=== PATIENT | female | born 1980 | race African-American/Black ===

== ENCOUNTER 2016-09-08 12:45 | Emergency (ER) | payer OTHER, MEDICARE ==
[~2016-09-08] VITALS: Ht 160 cm; Wt 105.5 kg
[2016-09-08] MEDS ORDERED: HYDROmorphone 1 MG/ML, 1ML ONE (13:59)
[2016-09-08] MEDS ORDERED: ONDANSETRON ODT 4 MG ONE (14:00)
[2016-09-08] MEDS ORDERED: METHOCARBAMOL 750 MG TABLET ONE (14:00)
[2016-09-08] MEDS ORDERED: HYDROmorphone 1 MG/ML, 1ML IM ONE (14:00)
[2016-09-08] MEDS ORDERED: METHOCARBAMOL 750 MG TABLET PO ONE (14:00)
[2016-09-08] MEDS ORDERED: ONDANSETRON ODT 4 MG PO ONE (14:00)
[2016-09-08] MEDS ORDERED: SODIUM CHLORIDE FLUSH 10ML SYR IVF ONE (15:00)
[2016-09-08] MEDS ORDERED: SODIUM CHLORIDE 0.9% 1,000ML IVBOLUS ONE (15:00)
[2016-09-08 15:13] LABS: PATH.CAST-FLAG NOT PRESENT; SPERM-FLAG NOT PRESENT; SRC-FLAG NOT PRESENT; XTAL-FLAG NOT PRESENT; YLC-FLAG NOT PRESENT
[2016-09-08 15:15] LABS: BLOOD UREA NITROGEN 11 mg/dL (7-18)
[2016-09-08] MEDS ORDERED: LORazepam 2 MG/ML, 1ML IVPush PRN (15:30)
[2016-09-08] MEDS ORDERED: LORazepam 2 MG/ML, 1ML ONE (15:31)
[2016-09-08] MEDS ORDERED: GADOBUTROL 10 MMOL/10 ML PFS ONE (16:01)
[2016-09-08 17:02] VITALS: BP 118/75
== END 2016-09-08 18:05 | disposition home or self-care (01) ==
LOC: ED 15:00
DX: G89.29 Other chronic pain (principal); M54.5 Low back pain; M51.36 Other intervertebral disc degeneration, lumbar region
CPT/HCPCS: 36415; 72158; 80048; 81001; 82040; 84703; 85025; 87086; 96361; 96372; 96374; 99285; A9585; J1170; J2060; J7030; Q0162

== ENCOUNTER 2017-03-18 13:35 | Emergency (ER) | payer OTHER, MEDICARE ==
[~2017-03-18] VITALS: Ht 157.5 cm; Wt 111.1 kg
[2017-03-18] MEDS ORDERED: HYDROmorphone 1 MG/ML, 1ML IM ONE ×2 (15:30→17:00)
[2017-03-18] MEDS ORDERED: KETOROLAC 30 MG/1 ML IM ONE (15:30)
[2017-03-18] MEDS ORDERED: DIAZEPAM 5 MG TABLET PO ONE (15:30)
[2017-03-18] MEDS ORDERED: KETOROLAC 30 MG/1 ML ONE (15:45)
[2017-03-18] MEDS ORDERED: DIAZEPAM 5 MG TABLET ONE (15:45)
[2017-03-18] MEDS ORDERED: HYDROmorphone 2 MG/ML, 1ML ONE ×2 (15:45→16:39)
[2017-03-18] MEDS ORDERED: ONDANSETRON ODT 4 MG ONE ×2 (17:12→19:25)
[2017-03-18] MEDS ORDERED: ONDANSETRON ODT 4 MG PO ONE (17:30)
[2017-03-18 19:07] VITALS: BP 129/84
[2017-03-18] MEDS ORDERED: NALOXONE 0.4 MG/ML, 1ML IVPush ONE (19:30)
== END 2017-03-18 16:53 | disposition home or self-care (01) ==
LOC: ED 16:47
DX: M54.42 Lumbago with sciatica, left side (principal); G89.29 Other chronic pain
CPT/HCPCS: 72110; 96372; 99284; J1170; J1885; Q0162

== ENCOUNTER 2018-03-22 10:05 | Emergency (ER) | payer OTHER, MEDICARE ==
[~2018-03-22] VITALS: Ht 157.5 cm; Wt 103.0 kg
--- NOTE | 2018-03-22 10:34 | NUR ---
Pt presents for pain to bilateral hips x 2 days. Pt states hx of LBP. Throbbing pain. Tingling and numbnes to LLE. cramping to RLE. No incont. Pt able to ambulate.
[2018-03-22] MEDS ORDERED: IBUPROFEN 600 MG TABLET ONE (10:47)
[2018-03-22] MEDS ORDERED: ONDANSETRON ODT 4 MG ONE (10:47)
[2018-03-22] MEDS ORDERED: HYDROmorphone 2 MG/ML, 1ML ONE (10:47)
[2018-03-22] MEDS ORDERED: ONDANSETRON ODT 4 MG PO ONE (11:00)
[2018-03-22] MEDS ORDERED: HYDROmorphone 2 MG/ML, 1ML IM ONE (11:00)
[2018-03-22] MEDS ORDERED: IBUPROFEN 200 MG TABLET PO ONE (11:00)
[2018-03-22 11:47] VITALS: BP 105/56
== END 2018-03-22 11:51 | disposition home or self-care (01) ==
LOC: ED 11:41
DX: M54.16 Radiculopathy, lumbar region (principal); M25.551 Pain in right hip; M25.552 Pain in left hip; G89.29 Other chronic pain; Z87.891 Personal history of nicotine dependence
CPT/HCPCS: 96372; 99283; J1170; Q0162

== ENCOUNTER → 2018-05-10 | Outpatient (CLI) | payer OTHER, MEDICARE ==
[~2018-05-10] MED LIST: FENTANYL PF 100 MCG/2ML ONE; FLUMAZENIL 0.1 MG/1 ML, 5ML ONE; MIDAZOLAM 1 MG/ML, 5ML ONE; NALOXONE 1 MG/ML, 2ML ONE
== END | disposition home or self-care (01) ==
LOC: RAD 09:42
PROVIDERS: ATTEND Nurse Practitioner Gerontology
DX: M43.16 Spondylolisthesis, lumbar region (principal); M54.16 Radiculopathy, lumbar region; M48.061 Spinal stenosis, lumbar region without neurogenic claudication
CPT/HCPCS: 72148; 99156; 99157; J2250; J3010; J2310

== ENCOUNTER → 2018-05-26 | Outpatient (CLI) | payer OTHER, MEDICARE | END | disposition home or self-care (01) | LOC: RAD 09:29 | PROVIDERS: ATTEND Nurse Practitioner Gerontology | DX: S33.39XA Dislocation of other parts of lumbar spine and pelvis, initial encounter (principal); M47.817 Spondylosis without myelopathy or radiculopathy, lumbosacral region; M43.07 Spondylolysis, lumbosacral region; M48.07 Spinal stenosis, lumbosacral region; X58.XXXA Exposure to other specified factors, initial encounter; Y93.89 Activity, other specified; Y92.89 Other specified places as the place of occurrence of the external cause; Y99.8 Other external cause status | CPT/HCPCS: 72114 ==

== ENCOUNTER → 2018-08-11 | Outpatient (CLI) | payer OTHER, MEDICARE ==
[~2018-08-11] MED LIST changes: +CYAN100072 PO; -FENTANYL PF 100 MCG/2ML ONE; -FLUMAZENIL 0.1 MG/1 ML, 5ML ONE; +MEDR5TAB2 PO; -MIDAZOLAM 1 MG/ML, 5ML ONE; +MULT-308 PO; -NALOXONE 1 MG/ML, 2ML ONE
[2018-08-11 16:12] LABS: BASOPHILS # (AUTO) 0.05 x10^3/uL (0-0.1); BASOPHILS % (AUTO) 1 % (0-1); EOSINOPHILS # (AUTO) 0.19 x10^3/uL (0-0.4); EOSINOPHILS % (AUTO) 3 % (1-7); LYMPHOCYTES # (AUTO) 2.22 x10^3/uL (1-3.4); LYMPHOCYTES % (AUTO) 31 % (22-44); MD NO; MEAN CORPUSCULAR HEMOGLOBIN 33.5 pg (27.0-34.8); MEAN CORPUSCULAR HGB CONC 32.9 g/dL (32.4-35.8); MEAN CORPUSCULAR VOLUME 101.8 fL (80-100); MEAN PLATELET VOLUME 8.4 fL (7.4-10.4); MONOCYTES # (AUTO) 0.62 x10^3/uL (0.2-0.8); MONOCYTES % (AUTO) 9 % (2-9); NEUTROPHILS # (AUTO) 4.15 x10^3/uL (1.8-6.8); NEUTROPHILS % (AUTO) 57 % (42-75); PLATELET COUNT 369 x10^3/uL (130-400); RED BLOOD COUNT 3.89 x10^6/uL (3.82-5.3); RED CELL DISTRIBUTION WIDTH 13.1 % (9.6-15.2)
== END | disposition home or self-care (01) ==
LOC: STAR 12:49
PROVIDERS: ATTEND Obstetrics & Gynecology
DX: Z01.818 Encounter for other preprocedural examination (principal); N93.9 Abnormal uterine and vaginal bleeding, unspecified
CPT/HCPCS: 36415; 84703; 85025

== ENCOUNTER 2018-08-15 09:43 | Day surgery (SDC) | payer OTHER, MEDICARE ==
[2018-08-11 15:19] VITALS: BP 141/92
[~2018-08-15] VITALS: Ht 157.5 cm; Wt 113.6 kg
[2018-08-15] MEDS ORDERED: HALOPERIDOL 5 MG/ML IV PRN ×2 (10:00)
[2018-08-15] MEDS ORDERED: MEPERIDINE/PF 25MG/0.5ML IVPush PRN (10:00)
[2018-08-15] MEDS ORDERED: HYDROmorphone 2 MG/ML, 1ML IVPush PRN (10:00)
[2018-08-15] MEDS ORDERED: PROCHLORPERAZINE 5 MG/ML, 2ML IV PRN (10:00)
[2018-08-15] MEDS ORDERED: LABETALOL 5MG/ML, 20ML IV PRN (10:00)
[2018-08-15] MEDS ORDERED: PROMETHAZINE 25 MG/ML, 1ML IV PRN (10:00)
[2018-08-15] MEDS ORDERED: METOPROLOL 1 MG/ML, 5ML IV PRN (10:00)
[2018-08-15] MEDS ORDERED: FENTANYL PF 100 MCG/2ML IV PRN (10:00)
[2018-08-15] MEDS ORDERED: OXYcodone 5 MG/5 ML ORAL.SOL UDC PO PRN (10:00)
[2018-08-15] MEDS ORDERED: hydrALAzine 20 MG/ML, 1ML IV PRN (10:00)
[2018-08-15] MEDS ORDERED: LACTATED RINGERS 1,000 ML IV SCH (10:49)
[2018-08-15 10:51] LABS: HCG UR SG 1.025 (1.003-1.030)
[2018-08-15] MEDS ORDERED: GABAPENTIN 300 MG CAPSULE PO ONE (11:00)
[2018-08-15] MEDS ORDERED: ACETAMINOPHEN 500 MG TABLET PO ONE (11:00)
[2018-08-15] MEDS ORDERED: SCOPOLAMINE PATCH, 1.5MG PATCH.TD72 TD ONE (11:00)
[2018-08-15] MEDS ORDERED: SILVER NITRATE STICK TP ONE (11:03)
[2018-08-15] MEDS ORDERED: BUPIVACAINE/PF 0.25% ONE (11:03)
[2018-08-15] MEDS ORDERED: KETOROLAC 30 MG/1 ML ONE (11:44)
[2018-08-15] MEDS ORDERED: FENTANYL PF 250 MCG/5ML ONE (12:21)
[2018-08-15] MEDS ORDERED: MIDAZOLAM 1 MG/ML, 2ML ONE (12:21)
[2018-08-15] MEDS ORDERED: CEFAZOLIN 1,000 MG ONE (12:22)
[2018-08-15] MEDS ORDERED: NEOSTIGMINE 1 MG/ML, 10ML ONE (12:22)
[2018-08-15] MEDS ORDERED: DEXAMETHASONE 4 MG/ML, 1ML ONE (12:22)
[2018-08-15] MEDS ORDERED: PROPOFOL 10 MG/ML, 20ML ONE (12:22)
[2018-08-15] MEDS ORDERED: ROCURONIUM 10MG/ML,5ML ONE (12:22)
[2018-08-15] MEDS ORDERED: ONDANSETRON 2MG/ML, 2ML ONE (12:22)
[2018-08-15] MEDS ORDERED: GLYCOPYRROLATE 0.2MG/1ML, 5ML ONE (12:22)
[2018-08-15] MEDS ORDERED: SUCCINYLCHOLINE 20 MG/ML, 10ML ONE (12:22)
[2018-08-15] MEDS ORDERED: HALOPERIDOL 5 MG/ML ONE (12:56)
== END 2018-08-15 15:35 | disposition home or self-care (01) ==
LOC: OUT 09:43
PROVIDERS: ATTEND Obstetrics & Gynecology
DX: N93.9 Abnormal uterine and vaginal bleeding, unspecified (principal); Z98.51 Tubal ligation status; Z90.49 Acquired absence of other specified parts of digestive tract; Z98.890 Other specified postprocedural states; Z88.5 Allergy status to narcotic agent; Z88.8 Allergy status to other drugs, medicaments and biological substances
CPT/HCPCS: 58563; 81025; J0330; J0690; J1100; J1630; J1885; J2250; J2405; J2704; J2710; J3010; J3490; J7120